=== PATIENT | female | born 2000 | race African-American/Black ===

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

== ENCOUNTER 2018-01-09 02:18 | Emergency (ER) | payer OTHER ==
[~2018-01-09 02:18] MED LIST changes: +DOCUSATE SODIU100 M3 PO; +FERRALET 90 TA1 EACH PO; +IBUPROFEN800 M1 PO; +LABETALOL HCL100 M1 PO; +PRENATAL TABLE1 EAC2 PO; +PROAIR HFA8.5 GM INH
--- NOTE | 2018-01-09 02:31 | ED GI/GU/ABDOMINAL COMPLAINT ---
History of Present Illness General Chief Complaint: Female Urogenital Problems Stated Complaint: "I THINK I HAVE A BLADDER INFECTION AGAIN" Source: patient, old records Exam Limitations: no limitations Vital Signs & Intake/Output Vital Signs & Intake/Output Vital Signs Date Time Temp Pulse Resp B/P B/P Pulse O2 O2 Flow FiO2 Mean Ox Delivery Rate 01/09 259 97.6 82 18 112/68 100 Room Air 01/09 025 100 Room Air Allergies Coded Allergies: No Known Allergies (12/19/17) Reconcile Medications Albuterol Sulfate (Proair Hfa) 90 MCG HFA.AER.AD 2 PUF INH Q4-6 PRN PRN ASTHMA (Reported) Docusate Sodium 100 MG CAPSULE 100 MG PO BID PRN STOOL SOFTENER Ibuprofen 800 MG TABLET 800 MG PO Q6P PRN UTERINE CRAMPING Iron Carb,Gl/FA/B12/C/Docusate (Ferralet 90 Tablet) 90 MG-1 MG-12 MCG-120 MG-50 MG TABLET 1 TAB PO DAILY ANEMIA (Reported) Labetalol HCl 100 MG TABLET 100 MG PO BID HYPERTENSION Vit No.130/Iron/FA ( Tablet) 27 MG IRON-800 MCG TABLET 1 TAB PO DAILY (Reported) Sulfamethoxazole/Trimethoprim (Bactrim Ds Tablet) 800 MG-160 MG TABLET 1 TAB PO BID URINE INFECTION Triage Nurses Notes Reviewed? yes ? N Is pt currently ? Yes HPI: Patient presents with dysuria and urinary frequency. Symptoms started earlier this afternoon. There are no fevers or chills. There is no back pain. There is no nausea or vomiting. Similar symptoms 2 weeks ago when she was diagnosed with a bladder infection. Patient states she went on a medication that turned her urine orange in color and that helped until earlier this afternoon. Patient is 3 weeks and is breast-feeding. Past History Travel History Traveled to [place] past 21 day No Medical History Any Pertinent Medical History? see below for history Neurological: NONE EENT: NONE Cardiovascular: NONE Respiratory: asthma Gastrointestinal: NONE Hepatic: NONE Renal: NONE Musculoskeletal: NONE Psychiatric: NONE Endocrine: NONE Blood Disorders: NONE Cancer(s): NONE INDUSTRIAL ECONOMIST/Reproductive: NONE Surgical History Surgical History: non-contributory, N Psychosocial History What is your primary language Kazakh Tobacco Use: Never used ETOH Use: denies use Illicit Drug Use: denies illicit drug use Family History Family History, If Any: MOTHER FH: congestive heart failure FH: depression FH: diabetes mellitus SISTER FH: asthma Hx Contributory? No Review of Systems Review of Systems Constitutional: Reports: no symptoms. Respiratory: Reports: no symptoms. Cardiovascular: Reports: no symptoms. GI: Reports: no symptoms. Genitourinary: Reports: see HPI, dysuria, frequency. Musculoskeletal: Reports: no symptoms. Neurological/Psychological: Reports: no symptoms. Immunologic/Allergic: Reports: no symptoms. Physical Exam Physical Exam General Appearance: well developed/nourished, alert, awake Head: atraumatic Eyes: Bilateral: PERRL, EOMI. Respiratory: normal breath sounds, chest non-tender, no respiratory distress, lungs clear Cardiovascular: regular rate/rhythm, normal peripheral pulses Gastrointestinal: normal bowel sounds, soft, non-tender, no organomegaly Back: normal inspection, normal range of motion Extremities: normal range of motion Neurologic/Psych: no motor/sensory deficits, awake, alert, oriented x 3, normal gait, normal mood/affect Core Measures ACS in differential dx? No Sepsis Present: No Sepsis Focused Exam Completed? No Progress Differential Diagnosis: UTI/pyelo Plan of Care: Orders Procedure Date/time Status Add-on Test (ER Only) 01/09 245 Active CULTURE,URINE 01/09 225 Active URINE 01/09 221 Complete URINALYSIS 01/09 221 Complete Laboratory Tests 01/09/185: Urinalysis LIGHT H, Urine Color STRAW, Urine Clarity CLDY H, Urine pH 6.0, Ur Specific [place] 1.020, Urine Protein 30 H, Urine Ketones NEG, Urine Nitrite NEG, Urine Bilirubin NEG, Urine Urobilinogen 0.2, Ur Leukocyte Esterase LARGE H , Ur Microscopic SEDIMENT EXAMINED, Urine RBC 25-50 H, Urine WBC 50-75 H, Ur Epithelial Cells FEW, Urine Bacteria MOD H, Urine Mucus FEW, Urine Hemoglobin LARGE H, Urine Glucose NEG, Urine Test NEGATIVE Microbiology 01/09 225 URINE ROUT: Urine Culture - RECD Initial ED EKG: none Departure Departure Disposition: HOME OR SELF CARE Condition: Stable Clinical Impression Primary Impression: UTI (urinary tract infection) Referrals: Sukh XIAO,Ovidio (PCP/Family) Additional Instructions: DRINK PELNTY OF FLUIDS TAKE BACTRIM PRESCRIBED RETURN IF SYMPTOMS WORSEN OR FOR ANY CONCERNS Departure Forms: Customer Survey General Discharge Information Prescriptions: Current Visit Scripts Sulfamethoxazole/Trimethoprim (Bactrim Ds Tablet) 1 TAB PO BID #10 TAB
[2018-01-09] MEDS ORDERED: BACTRIM DS TAB1 EACH PO (02:49)
[2018-01-09 02:59] VITALS: BP 112/68
== END 2018-01-09 03:00 ==
LOC: ERH 02:18
DX: N39.0 Urinary tract infection, site not specified (principal)
CPT/HCPCS: 81001; 81025; 87086